=== PATIENT | female | born 2000 | race Two or more races ===

== ENCOUNTER 2022-09-29 05:03 | Emergency (ER) | payer MEDICAID ==
[~2022-09-29] VITALS: Ht 170.2 cm; Wt 86.0 kg
[2022-09-29] MEDS ORDERED: KETOROLAC TROMETHAMINE 60 MG/2 ML VIAL IM ONE (06:45)
[2022-09-29] MEDS ORDERED: OxyCODONE HCL/ACETAMINOPHEN 5-325 MG TABLET PO ONE (09:00)
[2022-09-29] MEDS ORDERED: IBUP-1492 PO (10:24)
[2022-09-29] MEDS ORDERED: PERCT PO (10:24)
[2022-09-29 10:35] VITALS: BP 128/74
[2022-09-29] MEDS ORDERED: TRAM-559 PO (10:51)
== END 2022-09-29 10:37 | disposition home or self-care (01) ==
LOC: EMS 05:07
DX: S42.002A Fracture of unspecified part of left clavicle, initial encounter for closed fracture (principal); F12.90 Cannabis use, unspecified, uncomplicated; V29.99XA Rider (driver) (passenger) of other motorcycle injured in unspecified traffic accident, initial encounter; Y93.89 Activity, other specified; Y92.89 Other specified places as the place of occurrence of the external cause; Y99.8 Other external cause status
CPT/HCPCS: 99284; 73000; 73060; 96372; J1885